=== PATIENT | male | born 1930 | race Caucasian/White ===

== ENCOUNTER → 2016-06-03 | Outpatient (CLI) | payer MEDICARE, OTHER ==
[~2016-06-03] MED LIST: methylPREDNISolone 80 MG/ML (DEPO MEDROL) VIAL IM ONE
== END ==
LOC: PMC 13:08
PROC: 3E0R33Z Introduction of Anti-inflammatory into Spinal Canal, Percutaneous Approach (ICD-10-PCS; principal; 2016-06-03)
DX: M54.5 Low back pain (principal)